=== PATIENT | female | born 1955 | race Caucasian/White ===

== ENCOUNTER 2021-12-31 09:33 | Emergency (ER) | payer MEDICAID ==
--- NOTE | 2021-12-31 09:54 | ED Physician Documentation ---
PD HPI LOWER EXT INJURY - Stated complaint Stated Complaint: KNEE DISLOCATION - Chief complaint Chief Complaint: Trauma Ext - History obtained from History obtained from: Patient, EMS - Additional information Additional information: Patient is brought to the emergency department by EMS for chief complaint of right knee injury. She states she was walking when her foot slipped and her right knee twisted. She believes she has a patellar dislocation, which she has had previously. She complains of pain in the right knee and nowhere else. She has chronic hip pain which is unchanged from usual. She did not hit her head. Review of Systems Ten Systems: 10 systems reviewed and negative Constitutional: reports: Reviewed and negative Eyes: reports: Reviewed and negative Ears: reports: Reviewed and negative Nose: reports: Reviewed and negative Throat: reports: Reviewed and negative Cardiac: reports: Reviewed and negative Respiratory: reports: Reviewed and negative GI: reports: Reviewed and negative : reports: Reviewed and negative Skin: reports: Reviewed and negative Musculoskeletal: reports: Extremity pain, Joint pain Neurologic: reports: Reviewed and negative Psychiatric: reports: Reviewed and negative Endocrine: reports: Reviewed and negative Immunocompromised: reports: Reviewed and negative PD PAST MEDICAL HISTORY - Present Medications Home Medications: Ambulatory Orders Medication Instructions Recorded Confirmed HYDROcod/ACETAM 5/325 [[place] 5/325] 1 - 2 tablet PO Q6H PRN #14 tablet 12/31/21 - Allergies Allergies/Adverse Reactions: Allergies Allergy/AdvReac Type Severity Reaction Status Date / Time clarithromycin [From Biaxin] Allergy Unknown Verified 12/31/21 09:39 Sulfa (Sulfonamide Allergy Unknown Verified 12/31/21 09:39 Antibiotics) PD ED PE NORMAL - Vitals Vital signs reviewed: Yes - General General: Alert and oriented X 3, No acute distress, Well developed/nourished, Other (Appears mildly uncomfortable.) - HEENT HEENT: Atraumatic, PERRL, EOMI, Moist mucous membranes - Neck Neck: Supple, no meningeal sign - Cardiac Cardiac: Strong equal pulses - Respiratory Respiratory: No respiratory distress - Abdomen Abdomen: Soft, Non tender, Non distended - Derm Derm: Normal color, Warm and dry, No rash - Extremities Extremities: Other (Deformity at this anterior and lateral knee on the right, consistent with patellar dislocation. Patella is palpable to the lateral aspect of the right knee. No other deformity. Moderate tenderness over anterior and lateral knee. Full range of motion R ankle; no hip tenderness.) - Neuro Neuro: Alert and oriented X 3 - Psych Psych: Normal mood, Normal affect Results - Vitals Vitals: Vital Signs - 24 hr 12/31/21 12/31/21 12/31/21 09:39 10:11 11:03 Temperature 36.7 C Heart Rate 85 69 78 Respiratory 18 18 18 Rate Blood Pressure 136/64 H 136/81 H 133/63 H O2 Saturation 99 100 98 Oxygen O2 Source Room air - Rads (name of study) Right knee x-ray Radiology: Final report received, EMP read indepedently, See rad report (Appearance of recent patellar dislocation.) Procedures - Reduction Body part reduced: Right, Patella Fracture or dislocation: Dislocation Anesthesia: Dilaudid Reduction aftercare: NV intact, Xray confirms reduction, Alignment improved, Splint applied, Patient tolerated well PD MEDICAL DECISION MAKING - ED course Complexity details: reviewed results, re-evaluated patient, considered differential, d/w patient ED course: Patella was reduced as above. Patient was given Toradol and Dilaudid for analgesia and had been given fentanyl in route. She was found to be feeling much better. X-ray confirmed reduction. Patient was placed in a knee immobilizer and given crutches. She lives in [place] and is advised to call her primary doctor's office Today or tomorrow to set up a follow-up appointment so she can remove for to orthopedics as soon as possible. The patient is leaving to return to [place] in 3 days and does not want to try to see orthopedics here. We have discussed weightbearing as tolerated with Knee immobilizer in place plus or minus crutches. We have discussed the usual indications for return Departure - Departure Disposition: 01 Home, Self Care Clinical Impression: Patellar dislocation Qualifiers: Encounter type: initial encounter Laterality: right Qualified Code(s): S83.004A - Unspecified dislocation of right patella, initial encounter Condition: Stable Instructions: ED Dislocation Patella Prescriptions: HYDROcod/ACETAM 5/325 [Everton 5/325] 1 - 2 tablet PO Q6H PRN #14 tablet PRN Reason: Pain Comments: Your x-rays show evidence of the recently dislocated kneecap, but no broken bones. You should use the knee immobilizer and crutches until cleared by orthopedics. Please call your doctor's office office to set up referral to orthopedics for follow-up and reexamination soon as possible. Your prescription has been electronically transmitted to [facility] in [place]. Discharge Date/Time: 12/31/21 11:15
[2021-12-31] MEDS: HYDROmorphone 0.5 MG/0.5 ML SYRINGE IVP STA (10:07)
[2021-12-31] MEDS: KETOROLAC 15 MG/ML VIAL IVP STA (10:07)
--- NOTE | 2021-12-31 10:23 | XRAY Report ---
PROCEDURE: Knee 4 View RT INDICATIONS: Trauma TECHNIQUE: 3 views of the right knee(s) were acquired. COMPARISON: None. FINDINGS: Moderate suprapatellar and infrapatellar knee joint effusion. Moderate prepatellar soft tissue swelli ng. There is lateral subluxation and tilt of the patella. A few subtle linear lucencies through the l ateral aspect of the patella are likely nutrient foramina and areas of decreased trabeculation, altho ugh subtle fracture cannot be strictly excluded. There is otherwise no evidence of fracture. 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 IMPRESSION: Findings strongly suggestive of a transient lateral patellar dislocation injury. There is baseline fl attening of the trochlear notch with lateral subluxation and tilt of the patella. Few linear lucencie s in the lateral aspect of the patella are of low suspicion for fracture. MRI recommended when clinic ally appropriate. Reviewed by: Anival Vega MD on 12/31/2021 10:21 AM PDT Approved by: Anival Vega MD on 12/31/2021 10:21 AM PDT Station ID: [id number]
[2021-12-31 11:04] VITALS: BP 133/63
== END 2021-12-31 11:15 | disposition home or self-care (01) ==
LOC: ED 09:33
DX: S83.004A Unspecified dislocation of right patella, initial encounter (principal); X50.1XXA Overexertion from prolonged static or awkward postures, initial encounter; Y93.01 Activity, walking, marching and hiking
CPT/HCPCS: 27560; 73564; 99282; 99284; J1170